=== PATIENT | female | born 1945 | race Caucasian/White ===

== ENCOUNTER 2018-08-03 10:01 | Emergency (ER) | payer OTHER, MEDICARE ==
--- NOTE | 2018-08-03 10:54 | RAD REPORT ---
EXAM DESCRIPTION: CT - Ct Stroke Brain Wo Cont - 08/03/2018 10:40 am CLINICAL HISTORY: Confusion COMPARISON: None. TECHNIQUE: Computed axial tomography of the head was obtained. IV contrast was not requested. All CT scans are performed using dose optimization technique as appropriate and may include automated exposure control or mA/KV adjustment according to patient size. FINDINGS: An intracranial bleed is not seen . The ventricles are normal in caliber. No extra-axial fluid collection is noted. Fluid within the sinuses/ mastoids is not seen. IMPRESSION: No acute intracranial abnormality is seen. If patient's symptoms persist MRI of the bra in would be recommended. Newton from the ER notified at 10:45 a.m. August 03, 2018
--- NOTE | 2018-08-03 11:00 | RAD REPORT ---
EXAM DESCRIPTION: Angelic Single View08/03/2018 10:50 am CLINICAL HISTORY: Hypertension COMPARISON: none FINDINGS: The lungs appear clear of acute infiltrate. The heart is normal size IMPRESSION: No acute abnormalities displayed
[2018-08-03 11:21] LABS: Absolute Lymphocytes (CBC) 2.6 K/uL (0.7-4.9); Absolute Monocytes 0.4 K/uL (0.1-1.3); Absolute Neutrophil 7.3 K/uL (1.8-8.0); Basophils % 0.7 % (0-1.3); Eosinophils % 3.6 % (0-4.4); Hematocrit 50.4 % (36.0-45.0); Lymphocytes % 24.3 % (15.3-44.8); MPV 8.7 fL (7.6-11.3); Monocytes % 4.1 % (3.3-12.3); RBC Red Blood Cell Count 5.63 M/uL (3.86-4.86)
[2018-08-03 11:24] LABS: BUN Blood Urea Nitrogen 16 mg/dL (7-18); Bicarbonate 29 mmol/L (21-32); Glucose Level 105 mg/dL (74-106); Magnesium 2.4 mg/dL (1.8-2.4); Potassium 3.8 mmol/L (3.5-5.1); Sodium Level 140 mmol/L (136-145); Troponin (Emerg Dept Use Only) < 0.02 ng/mL (0.0-0.045)
[2018-08-03 11:27] LABS: Protime INR 0.99
[2018-08-03 11:55] LABS: Platelet Estimate ADEQ
[2018-08-03 11:56] LABS: Blood Morphology Comment NOT SEEN (NOT SEEN)
[2018-08-03] MEDS ORDERED: NA CHLORIDE 0.9% 500 ML ONE (12:15)
--- NOTE | 2018-08-03 12:22 | EDPHYS ---
Physician Documentation [facility] Name: Dyan Bullock Age: 73 yrs Sex: Female : 1945 Arrival Date: 08/03/2018 Time: 10:03 Bed 8 Private MD: ED Physician Edouard Chakraborty HPI: 08/03 10:50 This 73 yrs old Female presents to ER via Ambulatory with complaints of rn Memory Loss, Altered Mental Status. 10:50 The patient's problem is reported as altered mental status. Onset: The symptoms/episode rn began/occurred at an unknown time. Duration:. The symptoms are alleviated by nothing. The symptoms are aggravated by nothing. Severity of symptoms: At their worst the symptoms were mild in the emergency department the symptoms are unchanged. The patient has not experienced similar symptoms in the past. Reports last known normal last night, woke up today, and first conversation with exhibited some memory deficiencies from day before, was not able to recall shopping day before, but no other focal neurological deficits. Family reports acting a bit agitated this morning when they offered to call ambulance. No period where someone noticed her to be of normal mindset this AM. . Historical: - Allergies: 10:05 No Known Allergies; aa5 - Home Meds: 10:17 metformin 1,000 mg Oral tab 1 tab 2 times per day [Active]; Amaryl 4 mg Oral tab pc1 [Active]; lisinopril 10 mg Oral tab 1 tab once daily [Active]; Synthroid 150 mcg Oral tab 1 tab once daily [Active]; Lipitor 20 mg Oral tab 1 tab once daily [Active]; aspirin 81 mg Oral TbEC 1 tab once daily [Active]; azithromycin 250 mg Oral tab 2 tabs once daily [Active]; benzonatate 200 mg oral cap 1 cap 3 times per day [Active]; - PMHx: 10:17 Diabetes - NIDDM; Hypertension; Hypothyroidism; pc1 - Immunization history:: Adult Immunizations unknown. - Ebola Screening: : No symptoms or risks identified at this time. - Social history:: Smoking status: Patient/guardian denies using tobacco, Patient/guardian denies using alcohol. - Family history:: not pertinent. - Hospitalizations: : No recent hospitalization is reported. ROS: 10:50 Constitutional: Negative for fever, chills, and weight loss, Eyes: Negative for injury, rn pain, redness, and discharge, Neck: Negative for injury, pain, and swelling, Cardiovascular: Negative for chest pain, palpitations, and edema, Respiratory: Negative for shortness of breath, cough, wheezing, and pleuritic chest pain, Abdomen/GI: Negative for abdominal pain, nausea, vomiting, diarrhea, and constipation, Back: Negative for injury and pain, MS/Extremity: Negative for injury and deformity, Skin: Negative for injury, rash, and discoloration, Neuro: Negative for headache, weakness, numbness, tingling, and seizure. Exam: 10:50 Radiologist reports: no acute findings rn 10:50 Constitutional: This is a well developed, well nourished patient who is awake, alert, and in no acute distress. Head/Face: Normocephalic, atraumatic. Eyes: Pupils equal round and reactive to light, extra-ocular motions intact. Lids and lashes normal. Conjunctiva and sclera are non-icteric and not injected. Cornea within normal limits. Periorbital areas with no swelling, redness, or edema. ENT: Oropharynx with no redness, swelling, or masses, exudates, or evidence of obstruction, uvula midline. Mucous membranes moist. Neck: Trachea midline, no thyromegaly or masses palpated, and no cervical lymphadenopathy. Supple, full range of motion without nuchal rigidity, or vertebral point tenderness. No Meningismus. Cardiovascular: Regular rate and rhythm. No pulse deficits. Respiratory: Lungs have equal breath sounds bilaterally, clear to auscultation. No increased work of breathing, no retractions or nasal flaring. Abdomen/GI: soft, non-tender MS/ Extremity: Pulses equal, no cyanosis. Neurovascular intact. Full, normal range of motion. Equal circumference. Neuro: Awake and alert, GCS 15, oriented to person, place,not time. Cranial nerves II-XII grossly intact. Motor strength 5/5 in all extremities. Sensory grossly intact. Cerebellar exam normal. Vital Signs: 10:10 BP 184 / 103; Pulse 100; Resp 18; Temp 97.7(O); Pulse Ox 99% on R/A; Weight 68.04 kg; hj Height 5 ft. 9 in. (175.26 cm); 10:53 BP 175 / 90; Pulse 87; Resp 18; Pulse Ox 99% on R/A; hj 12:14 BP 150 / 89; Pulse 96; Resp 20; Pulse Ox 96% on R/A; Pain 0/10; pc1 13:44 BP 156 / 84; Pulse 97; Resp 16; Pulse Ox 97% on R/A; hb 15:11 BP 158 / 82; Pulse 85; Resp 18; Pulse Ox 100% on R/A; hj 10:10 Body Mass Index 22.15 (68.04 kg, 175.26 cm) NIH Stroke Scale Scores: 10:54 NIHSS Score: 1 rn 12:53 NIHSS Score: 1 MDM: 10:06 Patient medically screened. rn 10:32 ED course: Last known normal last night, woke up and first conversation with rn showed signs of memory problems, not recalling events yesterday, outside of TPA window, no TPA indicated at this point. . 10:49 ED course: Ct head no acute findings. rn 11:17 ED course: NOrmal ambulation to bathroom without difficulty or assistance. Normal gait..rn 12:18 ED course: Negative w/u here, will transfer to [facility] for neuro w/u including MRI. rn 12:20 Differential diagnosis: CVA, TIA, Dementia, metabolic disorder. Data reviewed: vital rn signs, nurses notes, lab test result(s), EKG, radiologic studies, CT scan, plain films, and as a result, I will admit patient. Counseling: I had a detailed discussion with the patient and/or guardian regarding: the historical points, exam findings, and any diagnostic results supporting the discharge/admit diagnosis, lab results, radiology results, the need for further work-up and treatment in the hospital, the need to transfer to another facility, [facility] does not immediately have the required specialist. Response to treatment: There is no appreciated change of the patient's symptoms at this time. 12:23 ED course: Dr. Palumbo requests CTA head and neck prior to transfer.. rn 13:57 ED course: CT head and neck angio negative for acute abnormality. . rn 08/03 10:28 Order name: Magnesium; Complete Time: 11:45 rn 08/03 10:28 Order name: Troponin (emerg Dept Use Only); Complete Time: 11:45 rn 08/03 10:28 Order name: Basic Metabolic Panel; Complete Time: 11:45 rn 08/03 10:28 Order name: CBC with Diff; Complete Time: 13:30 rn 08/03 10:28 Order name: Protime (+inr); Complete Time: 11:45 rn 08/03 10:28 Order name: Ptt, Activated; Complete Time: 11:45 rn 08/03 10:28 Order name: CT Stroke Brain w/o Contrast; Complete Time: 11:05 rn 08/03 10:28 Order name: Stroke CXR 1 View; Complete Time: 11:05 rn 08/03 10:29 Order name: TSH; Complete Time: 11:45 rn 08/03 10:29 Order name: T4 Free; Complete Time: 11:45 rn 08/03 10:31 Order name: Urine Microscopic Only; Complete Time: 13:30 rn 08/03 10:56 Order name: Glucose, Ancillary Testing; Complete Time: 11:05 EDMS 08/03 11:23 Order name: Manual Differential; Complete Time: 13:30 EDMS 08/03 11:24 Order name: Urine Dipstick--Ancillary (enter results) eb 08/03 10:28 Order name: EKG; Complete Time: 10:30 rn 08/03 10:28 Order name: Accucheck; Complete Time: 10:37 rn 08/03 10:28 Order name: Cardiac monitoring; Complete Time: 10:30 rn 08/03 10:28 Order name: EKG - Nurse/Tech; Complete Time: 10:44 rn 08/03 10:28 Order name: IV Saline Lock; Complete Time: 10:37 rn 08/03 10:28 Order name: Labs collected and sent; Complete Time: 10:44 rn 08/03 10:28 Order name: NPO; Complete Time: 10: rn 08/03 10:28 Order name: O2 Per Protocol; Complete Time: 10:31 rn 08/03 10:28 Order name: O2 Sat Monitoring; Complete Time: 10: rn 08/03 10:28 Order name: Stroke Swallow Screen; Complete Time: 11: rn 08/03 10:31 Order name: Urine Dipstick-Ancillary (obtain specimen); Complete Time: 11:18 rn 08/03 12:27 Order name: Head angio; Complete Time: 13:55 EDMS 08/03 12:27 Order name: Neck Angio; Complete Time: 13:55 EDMS Administered Medications: 11:47 Drug: NS 0.9% 500 ml Route: IV; Rate: bolus; Site: right forearm; hj 12:49 Follow up: IV Status: Completed infusion; IV Intake: 500ml Point of Care Testing: Blood Glucose: 10:37 Blood Glucose: 106 mg/dL; pc1 Ranges: Critical Glucose Levels:Adult <50 mg/dl or >400 mg/dl <40 mg/dl or >180 mg/dl Disposition: 08/03/18 12:21 Transfer ordered to [facility]. Diagnosis is Altered mental status, unspecified. - Reason for transfer: Higher level of care. - Accepting physician is Dr. Palumbo. - Condition is Stable. - Problem is new. - Symptoms are unchanged. NIH Stroke Scale - NIH Stroke Score Date: 08/03/2018 Time: 10:54 Total Score = 1 1a. Level of Consciousness (LOC) - 0(Alert) 1b. Level of Consciousness (LOC) (Year \T\ Age) - 1(One) 1c. LOC Commands (Open \T\ Closes Eyes/Upholstery Covers Inspector) - 0(Both) 2. Best Gaze (Lateral Gaze Paresis) - 0(Normal) 3. Visual Field Loss - 0(No visual loss) 4. Facial Palsy - 0(Normal) 5a. Left Arm: Motor (10-second hold) - 0(No drift) 5b. Right Arm: Motor (10-second hold) - 0(No drift) 6a. Left Leg: Motor (5-second hold - always test supine) - 0(No drift) 6b. Right Leg: Motor (5-second hold - always test supine) - 0(No drift) 7. Limb Ataxia (finger/nose \T\ heel/sweeney - test with eyes open) - 0(Absent) 8. Sensory Loss (pinprick arms/legs/face) - 0(Normal) 9. Best Language: Aphasia (description/naming/reading) - 0(No aphasia) 10. Dysarthria (speech clarity - read or repeat words) - 0(Normal) 11. Extinction and Inattention (visual/tactile/auditory/spatial/personal) - 0(No abnormality) Initials: lisbet NIH Stroke Scale - NIH Stroke Score Date: 08/03/2018 Time: 12:53 Total Score = 1 1a. Level of Consciousness (LOC) - 1(Not Alert) 1b. Level of Consciousness (LOC) (Year \T\ Age) - 0(Both) 1c. LOC Commands (Open \T\ Closes Eyes/Upholstery Covers Inspector) - 0(Both) 2. Best Gaze (Lateral Gaze Paresis) - 0(Normal) 3. Visual Field Loss - 0(No visual loss) 4. Facial Palsy - 0(Normal) 5a. Left Arm: Motor (10-second hold) - 0(No drift) 5b. Right Arm: Motor (10-second hold) - 0(No drift) 6a. Left Leg: Motor (5-second hold - always test supine) - 0(No drift) 6b. Right Leg: Motor (5-second hold - always test supine) - 0(No drift) 7. Limb Ataxia (finger/nose \T\ heel/sweeney - test with eyes open) - 0(Absent) 8. Sensory Loss (pinprick arms/legs/face) - 0(Normal) 9. Best Language: Aphasia (description/naming/reading) - 0(No aphasia) 10. Dysarthria (speech clarity - read or repeat words) - 0(Normal) 11. Extinction and Inattention (visual/tactile/auditory/spatial/personal) - 0(No abnormality) Initials: hj Signatures: Dispatcher [employer] [facility] Edouard Chakraborty MD MD rn Calderon, Audri, RN RN aa5 Miguel Whittington, RN Cody Ulloa pc1 Corrections: (The following items were deleted from the chart) 10:32 10:31 UA MICROSCOPIC+U.LAB.BRZ ordered. [facility] EDSC 15:41 12:21 08/03/2018 12:21 Transfer ordered to [facility]. hj Diagnosis is Altered mental status, unspecified. Reason for transfer: Higher level of care. Accepting physician is Dr. Palumbo. Condition is Stable. Problem is new. Symptoms are unchanged. rn
--- NOTE | 2018-08-03 12:22 | ER ---
Nurse's Notes [facility] Name: Dyan Bullock Age: 73 yrs Sex: Female : 1945 Arrival Date: 08/03/2018 Time: 10:03 Bed 8 Private MD: Diagnosis: Altered mental status, unspecified Presentation: 08/03 10:05 Presenting complaint: Daughter states "she woke up confused today". Pt's states aa5 "we bought some plants yesterday and today she asked who's plants are those? and she couldn't recall that we went shopping for them yesterday". Pt is alert and oriented x person/place/time. Pt denies pain or any complaints. Reports she is taking amoxicillin for a cold. 10:05 Transition of care: patient was not received from another setting of care. Onset of aa5 symptoms was August 03, 2018. Risk Assessment: Do you want to hurt yourself or someone else? Patient reports no desire to harm self or others. Initial Sepsis Screen: Does the patient meet any 2 criteria? No. Patient's initial sepsis screen is negative. Does the patient have a suspected source of infection? No. Patient's initial sepsis screen is negative. Care prior to arrival: None. 10:05 Method Of Arrival: Ambulatory aa5 10:05 Acuity: CONRADO 2 aa5 Triage Assessment: 10:05 General: Appears in no apparent distress. uncomfortable, Behavior is calm, cooperative, hj appropriate for age. Pain: Denies pain. Historical: - Allergies: 10:05 No Known Allergies; aa5 - Home Meds: 10:17 metformin 1,000 mg Oral tab 1 tab 2 times per day [Active]; Amaryl 4 mg Oral tab pc1 [Active]; lisinopril 10 mg Oral tab 1 tab once daily [Active]; Synthroid 150 mcg Oral tab 1 tab once daily [Active]; Lipitor 20 mg Oral tab 1 tab once daily [Active]; aspirin 81 mg Oral TbEC 1 tab once daily [Active]; azithromycin 250 mg Oral tab 2 tabs once daily [Active]; benzonatate 200 mg oral cap 1 cap 3 times per day [Active]; - PMHx: 10:17 Diabetes - NIDDM; Hypertension; Hypothyroidism; pc1 - Immunization history:: Adult Immunizations unknown. - Ebola Screening: : No symptoms or risks identified at this time. - Social history:: Smoking status: Patient/guardian denies using tobacco, Patient/guardian denies using alcohol. - Family history:: not pertinent. - Hospitalizations: : No recent hospitalization is reported. Screenin:15 Patient has been NPO before screening. The patient is alert, able to follow commands. hj The patient does not exhibit slurred or garbled speech The patient is not exhibiting difficulty speaking. The patient does not exhibit difficulty understanding words. The patient is able to swallow own secretions with no drooling or need for suction. Patient tolerated one teaspoon of water. No drooling, immediate coughing, gurgling, or clearing of the throat was noted. The patient tolerated 90mL of water. No drooling, immediate coughing, gurgling, or clearing of the throat was noted. The patient passed the bedside swallow screening. Oral medications may be given as ordered. Contact Physician for further diet orders. Provider notified of bedside swallow screening results: Miguel Whittington RN. 10:19 Abuse screen: Denies threats or abuse. Denies injuries from another. Nutritional pc1 screening: No deficits noted. Tuberculosis screening: No symptoms or risk factors identified. Fall Risk None identified. Assessment: 10:05 General: Appears in no apparent distress. uncomfortable, Behavior is calm, cooperative, hj appropriate for age. Pain: Denies pain. Neuro: Level of Consciousness is awake, alert, obeys commands, Oriented to. Cardiovascular: Capillary refill < 3 seconds Patient's skin is warm and dry. Respiratory: Airway is patent Respiratory effort is even, unlabored, Respiratory pattern is regular, symmetrical. GI: No signs and/or symptoms were reported involving the gastrointestinal system. : No signs and/or symptoms were reported regarding the genitourinary system. EENT: No signs and/or symptoms were reported regarding the EENT system. Derm: No signs and/or symptoms reported regarding the dermatologic system. Musculoskeletal: No signs and/or symptoms reported regarding the musculoskeletal system. 10:20 Reassessment: Patient and/or family updated on plan of care and expected duration. Pain hj level reassessed. Patient is alert, oriented x 3, equal unlabored respirations, skin warm/dry/pink. wheeled to CT;. 10:38 Reassessment: last known normal per is 9:30 am last night. hj 11:30 Reassessment: Patient and/or family updated on plan of care and expected duration. Pain hj level reassessed. Patient is alert, oriented x 3, equal unlabored respirations, skin warm/dry/pink. awaiting results and POC;. 12:55 Reassessment: for transfer; awaiting approval;. hj 13:30 Reassessment: Patient and/or family updated on plan of care and expected duration. Pain hj level reassessed. Patient is alert, oriented x 3, equal unlabored respirations, skin warm/dry/pink. no other complaints. 14:44 Reassessment: Patient and/or family updated on plan of care and expected duration. Pain hj level reassessed. Patient is alert, oriented x 3, equal unlabored respirations, skin warm/dry/pink. awaiting paper works for transfer;. 15:02 Reassessment: Report called to Nurse Chayito Hawthorne. pc1 Vital Signs: 10:10 BP 184 / 103; Pulse 100; Resp 18; Temp 97.7(O); Pulse Ox 99% on R/A; Weight 68.04 kg; hj Height 5 ft. 9 in. (175.26 cm); 10:53 BP 175 / 90; Pulse 87; Resp 18; Pulse Ox 99% on R/A; hj 12:14 BP 150 / 89; Pulse 96; Resp 20; Pulse Ox 96% on R/A; Pain 0/10; pc1 13:44 BP 156 / 84; Pulse 97; Resp 16; Pulse Ox 97% on R/A; hb 15:11 BP 158 / 82; Pulse 85; Resp 18; Pulse Ox 100% on R/A; hj 10:10 Body Mass Index 22.15 (68.04 kg, 175.26 cm) hj NIH Stroke Scale Scores: 10:54 NIHSS Score: 1 rn 12:53 NIHSS Score: 1 ED Course: 10:03 Patient arrived in ED. as 10:03 Arm band placed on Patient placed in an exam room, on a stretcher. aa5 10:06 Edouard Chakraborty MD is Attending Physician. rn 10:09 Miguel Whittington, ASHLIE is Primary Nurse. hj 10:11 Triage completed. aa5 10:19 Patient has correct armband on for positive identification. Bed in low position. Call pc1 light in reach. Side rails up X2. 10:[address] via stretcher. pc1 10:36 Inserted saline lock: 20 gauge in right forearm, using aseptic technique. pc1 10:40 CT Stroke Brain w/o Contrast In Process Unspecified. EDMS 10:[address] back from [address]. pc1 10:49 Stroke CXR 1 View In Process Unspecified. EDMS 11:50 Urine collected: clean catch specimen, cloudy, edgar colored. jb1 12:19 initiated a transfer with Sandra at the [facility] transfer center. eb 12:[address] Palumbo the neurologist semiconductor wafers etcher stripper for [facility] with Dr. Chakraborty for eb patient transfer consultation. 13:20 Head angio In Process Unspecified. EDMS 13:20 Neck Angio In Process Unspecified. EDMS 14:[address] Carlos the hospitalist semiconductor wafers etcher stripper from [facility] with Dr. Chakraborty for eb patient transfer consultation. 14:23 administrative approval given by Sandra Tomlin at the [facility] transfer center/ patient going to bed 2214/ report to be called to [phone]/ Dr. Carlos has accepted the patient in transfer. 15:09 No provider procedures requiring assistance completed. hj 15:10 Patient transferred, IV remains in place. intact. Administered Medications: 11:47 Drug: NS 0.9% 500 ml Route: IV; Rate: bolus; Site: right forearm; hj 12:49 Follow up: IV Status: Completed infusion; IV Intake: 500ml Point of Care Testing: Blood Glucose: 10:37 Blood Glucose: 106 mg/dL; pc1 Ranges: Intake: 12:49 IV: 500ml; Total: 500ml. Outcome: 12:21 ER care complete, transfer ordered by . rn 15:10 Transferred by ground EMS to [facility], Transfer form completed. hj X-rays sent w/ patient. Note: report called to Chayito Hawthorne; 15:10 Condition: stable 15:10 Instructed on the need for transfer, Demonstrated understanding of instructions. 15:41 Patient left the ED. NIH Stroke Scale - NIH Stroke Score Date: 08/03/2018 Time: 10:54 Total Score = 1 1a. Level of Consciousness (LOC) - 0(Alert) 1b. Level of Consciousness (LOC) (Year \\T\\ Age) - 1(One) 1c. LOC Commands (Open \\T\\ Closes Eyes/Spring Repairer Helper Hand) - 0(Both) 2. Best Gaze (Lateral Gaze Paresis) - 0(Normal) 3. Visual Field Loss - 0(No visual loss) 4. Facial Palsy - 0(Normal) 5a. Left Arm: Motor (10-second hold) - 0(No drift) 5b. Right Arm: Motor (10-second hold) - 0(No drift) 6a. Left Leg: Motor (5-second hold - always test supine) - 0(No drift) 6b. Right Leg: Motor (5-second hold - always test supine) - 0(No drift) 7. Limb Ataxia (finger/nose \\T\\ heel/sweeney - test with eyes open) - 0(Absent) 8. Sensory Loss (pinprick arms/legs/face) - 0(Normal) 9. Best Language: Aphasia (description/naming/reading) - 0(No aphasia) 10. Dysarthria (speech clarity - read or repeat words) - 0(Normal) 11. Extinction and Inattention (visual/tactile/auditory/spatial/personal) - 0(No abnormality) Initials: ashlie NIH Stroke Scale - NIH Stroke Score Date: 08/03/2018 Time: 12:53 Total Score = 1 1a. Level of Consciousness (LOC) - 1(Not Alert) 1b. Level of Consciousness (LOC) (Year \\T\\ Age) - 0(Both) 1c. LOC Commands (Open \\T\\ Closes Eyes/Spring Repairer Helper Hand) - 0(Both) 2. Best Gaze (Lateral Gaze Paresis) - 0(Normal) 3. Visual Field Loss - 0(No visual loss) 4. Facial Palsy - 0(Normal) 5a. Left Arm: Motor (10-second hold) - 0(No drift) 5b. Right Arm: Motor (10-second hold) - 0(No drift) 6a. Left Leg: Motor (5-second hold - always test supine) - 0(No drift) 6b. Right Leg: Motor (5-second hold - always test supine) - 0(No drift) 7. Limb Ataxia (finger/nose \\T\\ heel/sweeney - test with eyes open) - 0(Absent) 8. Sensory Loss (pinprick arms/legs/face) - 0(Normal) 9. Best Language: Aphasia (description/naming/reading) - 0(No aphasia) 10. Dysarthria (speech clarity - read or repeat words) - 0(Normal) 11. Extinction and Inattention (visual/tactile/auditory/spatial/personal) - 0(No abnormality) Initials: Signatures: Dispatcher [employer] EDMS Demetri Guadalupe jb[address] Treviño Roman, MD MD rn Calderon, Audri, RN RN aa5 Miguel Whittington RN RN hj Baxter, Heather, RN RN hb Botello, Elizabeth eb Cantu, Patrick pc1 Corrections: (The following items were deleted from the chart) 10:46 10:10 BP 184 / 103; Pulse 100bpm; Resp 18bpm; Pulse Ox 99% RA; [facility] 10:51 10:10 BP 184 / 103; Pulse 100bpm; Resp 18bpm; Pulse Ox 99% RA; 68.04 kg; Height 5 ft. 9 in.; BMI: 22.1; 10:56 10:53 Pulse 87bpm; Resp 18bpm; Pulse Ox 99% RA; [facility] 12:54 10:15 NIHSS Score: 1 [facility] 12:54 10:15 Patient has been NPO before screening. The patient is alert, able to hj follow commands. The patient does not exhibit slurred or garbled speech The patient is not exhibiting difficulty speaking. The patient does not exhibit difficulty understanding words. The patient is able to swallow own secretions with no drooling or need for suction. Patient tolerated one teaspoon of water. No drooling, immediate coughing, gurgling, or clearing of the throat was noted. The patient tolerated 90mL of water. No drooling, immediate coughing, gurgling, or clearing of the throat was noted. The patient passed the bedside swallow screening. Oral medications may be given as ordered. Contact Physician for further diet orders. Provider notified of bedside swallow screening results: Miguel Whittington RN 15:10 15:09 Patient did not have IV access during this emergency room visit. kali bass
[2018-08-03 12:42] LABS: Urine Bacteria <20 /HPF (<20); Urine Culture Reflex Order NOT NEEDED; Urine Mucus SLIGHT /HPF (NONE SEEN); Urine RBC <5 /HPF (NONE SEEN)
--- NOTE | 2018-08-03 13:39 | RAD REPORT ---
EXAM DESCRIPTION: Ruby Angio08/03/2018 1:20 pm CLINICAL HISTORY: cva COMPARISON: None TECHNIQUE: 50 cc Isovue 370 was administered intravenously. 3D MIP reconstruction performed All CT scans are performed using dose optimization technique as appropriate and may include automated exposure control or mA/KV adjustment according to patient size. FINDINGS: The common carotid, internal carotid, external carotid arteries bilaterally do not demonst rate a significant stenosis. An aneurysm is not noted. Minimal calcified plaque is seen within the right brachiocephalic artery. The artery is tortuous The left vertebral artery is dominant. Vertebral arteries are unremarkable. IMPRESSION: Minimal calcified plaque within the right brachiocephalic artery. No significant abnorma lity displayed NASCET criteria used. Mild 0-49% stenosis Moderate 50-69% stenosis Severe 70-99% stenosis
--- NOTE | 2018-08-03 13:47 | RAD REPORT ---
EXAM DESCRIPTION: CTHead angio08/03/2018 1:20 pm CLINICAL HISTORY: cva COMPARISON: None TECHNIQUE: CT angiogram of the head was obtained. 3D MIPS reconstruction performed. All CT scans are performed using dose optimization technique as appropriate and may include automated exposure control or mA/KV adjustment according to patient size. FINDINGS: The basilar, internal carotid, anterior cerebral, middle cerebral and posterior cerebral a rteries are normal caliber. An aneurysm is not seen. A significant stenosis is not noted. origin right posterior cerebral artery IMPRESSION: Unremarkable CT angiogram head.
[2018-08-03 16:23] LABS: Urine Blood NEGATIVE (NEG); Urine Glucose NEGATIVE (NEG); Urine Protein 1+ (NEG)
--- NOTE | 2018-08-04 07:31 | EKG ---
Test Date: 2018-08-03 Test Time: 10:48:47 Laboratory Mechanical Technician: DOMINGA MEASUREMENT RESULTS: Intervals: Rate: 71 MD: 174 QRSD: 86 QT: 374 QTc: 406 Huntley: P: 57 MD: 174 QRS: -34 T: 46 INTERPRETIVE STATEMENTS: Sinus rhythm with marked sinus arrhythmia Left axis deviation Abnormal ECG No previous ECG available for comparison Electronically Signed On 08-04-18 07:30:15 CDT by Sumit Candelario
== END 2018-08-03 15:41 | disposition short-term general hospital (02) ==
LOC: ER 10:01
DX: R41.82 Altered mental status, unspecified (principal); I10 Essential (primary) hypertension; E11.9 Type 2 diabetes mellitus without complications; E03.9 Hypothyroidism, unspecified; Z79.82 Long term (current) use of aspirin
CPT/HCPCS: 93005; 85025; 80048; 36415; 83735; 85610; 82962; 85730; 84443; 84484; 84439; 70496; 70498; 70450; 71045; 96360; 99285; Q9967; 81003; 81015

== ENCOUNTER 2025-02-26 19:55 | Emergency (ER) | payer OTHER, MEDICARE ==
[2025-02-26] MEDS ORDERED: ONDANSETRON 4 MG/2 ML VIAL ONE (20:43)
[2025-02-26 20:46] LABS: Absolute Lymphocytes (CBC) 0.5 K/uL (0.7-4.9); Hematocrit 36.6 % (36.0-45.0); Hemoglobin 12.6 g/dL (12.0-15.0); MCH 30.6 pg (27.0-35.0); MCHC 34.3 g/dL (32.0-36.0); MCV 89.1 fL (80-100); MPV 7.5 fL (7.6-11.3); Nucleated RBC Absolute Count 0.0 (0-0); Nucleated Red Blood Cells % 0.2 % (0-0); RBC Red Blood Cell Count 4.11 M/uL (3.86-4.86); White Blood Count 11.50 thou/uL (4.3-10.9)
[2025-02-26 20:57] LABS: Anion Gap 10.9 mEq/L (5.0-15.0); BUN Blood Urea Nitrogen 23.0 mg/dL (7-18); Glucose Level 149.0 mg/dL (74-106); Magnesium 2.2 mg/dL (1.6-2.4); Potassium 3.9 mEq/L (3.5-5.1); Troponin High Sensitivity 6.7 pg/mL (<58.9)
--- NOTE | 2025-02-26 21:26 | RAD REPORT ---
EXAMINATION: ONE VIEW CHEST XR CLINICAL INDICATION: dizzy TECHNIQUE: Frontal chest projection is submitted. Examination is limited by patient positioning and t echnique. COMPARISON: 08/03/2018 FINDINGS: The lungs are well inflated and clear. The heart is normal in size. No displaced fractures identified . IMPRESSION: No acute intrathoracic abnormalities.
--- NOTE | 2025-02-26 21:27 | RAD REPORT ---
EXAMINATION: XR LEFT ANKLE CLINICAL INDICATION: Female, 79 years old. Pain;Swelling TECHNIQUE: 3 view radiograph of the left ankle were obtained. COMPARISON: No prior exam. FINDINGS: Small avulsion fracture suspected distal fibula. Moderate soft tissue swelling is seen abo ut the ankle. No additional fracture or dislocation seen.
[2025-02-26 21:30] LABS: Sqamous Epithelial <5 /HPF (None Seen); Urine Culture Reflex Order NOT NEEDED; Urine Microscopic Reflex YN ORDER UMIC
[2025-02-26 21:37] LABS: Differential Total Cells Count 100; Segmented Neutrophils 83 % (40-80)
[2025-02-26 21:38] LABS: Anisocytosis 1+; Polychromasia 1+
[2025-02-26 21:41] LABS: Blood Morphology Comment NOTED (NOT SEEN)
--- NOTE | 2025-02-26 21:52 | RAD REPORT ---
EXAMINATION: XR RIGHT KNEE CLINICAL INDICATION: Female, 79 years old. fall;Pain TECHNIQUE: Multiple views of the right knee were obtained. COMPARISON: No prior exam. FINDINGS: Mild diffuse osteopenia. Moderate medial compartment space narrowing. No acute fracture or dislocation. No aggressive bone lesion. Soft tissue swelling anterior knee. Small suprapatellar joint effusion.
--- NOTE | 2025-02-26 23:03 | ER ---
Nurse's Notes [facility] Name: Dyan Bullock Age: 79 yrs Sex: Female : 1945 Arrival Date: 02/26/2025 Time: 19:46 Bed 26 Private MD: Diagnosis: Avulsion Fracture of Ankle Left Lateral Malleolus ;Contusion of right knee, initial encounter;Fall on same level from slipping, tripping and stumbling with subsequent striking against object Presentation: 02/26 20:00 Chief complaint: EMS states: toned out for near fall. Patient twisted her left ankle me1 this morning and fell. This evening she stepped off a curb and her left knee gave out causing her to stumble and her grandsons caught her and helped her to sit down. While sitting outside waiting on EMS patient became a little dizzy, diaphoretic and had some nausea and vomited. 22g R wrist established. Coronavirus screen: At this time, the client does not indicate any symptoms associated with coronavirus-19. Ebola Screen: No symptoms or risks identified at this time. Initial Sepsis Screen: Does the patient meet any 2 criteria? No. Patient's initial sepsis screen is negative. Does the patient have a suspected source of infection? No. Patient's initial sepsis screen is negative. Risk Assessment: Do you want to hurt yourself or someone else? Patient reports no desire to harm self or others. Onset of symptoms was February 26, 2025. 20:00 Method Of Arrival: EMS: [facility] 20:00 Acuity: CONRADO 3 me1 Triage Assessment: 20:07 General: Appears in no apparent distress. well groomed, well developed, well nourished, me1 Behavior is calm, cooperative, appropriate for age, Reports c/o pain to left ankle and right knee. 08/27. Pain: Complains of pain in right knee and left medial ankle Pain does not radiate. Pain currently is 4 out of 10 on a pain scale. Quality of pain is described as aching, tender, Pain began suddenly, Is continuous. EENT: No signs and/or symptoms were reported regarding the EENT system. Neuro: Level of Consciousness is awake, alert, obeys commands, Oriented to person, place, time, situation, Appropriate for age. Cardiovascular: Patient's skin is warm and dry. Respiratory: Airway is patent Respiratory effort is even, unlabored, Respiratory pattern is regular, symmetrical. GI: Reports nausea, vomiting, x1 this evening. : No signs and/or symptoms were reported regarding the genitourinary system. Derm: Skin is intact, is healthy with good turgor, Skin is normal. Musculoskeletal: Reports pain in left ankle and right knee. Historical: - Allergies: 20:07 No Known Allergies; me1 - PMHx: 20:07 Diabetes - NIDDM; Hypertension; Hypothyroidism; uterine cancer (Unknown); me1 - PSHx: 20:07 Total abdominal hysterectomy; me1 - Immunization history:: Adult Immunizations up to date. - Infectious Disease History:: Denies. - Social history:: Smoking status: Patient denies any tobacco usage or history of. Screenin:07 [facility] ED Fall Risk Assessment (Adult) History of falling in the last 3 months, me1 including since admission Yes- single mechanical fall (1 pt) Confusion or Disorientation No (0 pts) Intoxicated or Sedated No (0 pts) Impaired Gait No (0 pts) Mobility Assist Device Used No (0 pt) Altered Elimination No (0 pt) Score/Fall Risk Level 0 - 2 = Low Risk Maintained a safe environment, Provided non-skid footwear, Hourly rounding (assess needs \T\ fall precautionary measures) done. Abuse screen: Denies threats or abuse. Nutritional screening: No deficits noted. Tuberculosis screening: No symptoms or risk factors identified. Assessment: 20:07 Reassessment: See triage assessment. me1 21:55 Reassessment: Patient appears in no apparent distress at this time. jb4 23:43 Reassessment: Patient appears in no apparent distress at this time. Patient and/or jb4 family updated on plan of care and expected duration. Pain level reassessed. Patient is alert, oriented x 3, equal unlabored respirations, skin warm/dry/pink. Vital Signs: 20:00 BP 155 / 81; Pulse 83; Resp 20; Temp 98.3; Pulse Ox 94% on R/A; Weight 65.77 kg; Height me1 5 ft. 9 in. ; Pain 4/10; 21:00 BP 115 / 79; Pulse 75; Resp 16; Pulse Ox 94% ; me1 21:55 BP 164 / 86; Pulse 86; Resp 16; Pulse Ox 92% on R/A; jb4 23:15 BP 153 / 78; Pulse 84; Resp 16; Pulse Ox 93% on R/A; jb4 20:00 Body Mass Index 21.41 (65.77 kg, 175.26 cm) me1 20:00 Pain Scale: Adult wv1 ED Course: 19:58 Patient arrived in ED. me1 20:02 Ben Plascencia DO is Attending Physician. ms3 20:05 Larry Broussard PA-C is PHCP. cp 20:07 Triage completed. me1 20:07 Arm band placed on Patient placed in an exam room. me1 20:07 Patient has correct armband on for positive identification. Bed in low position. Call wv1 light in reach. Side rails up X2. Provided Education on: POC. Verbalized understanding.. Client placed on continuous cardiac and pulse oximetry monitoring. NIBP monitoring applied. school bus monitor on. Pulse ox on. NIBP on. 20:07 No provider procedures requiring assistance completed. me1 20:14 Mildred Bull, ASHLIE is Primary Nurse. me1 20:32 Maintain EMS IV. Dressing intact. Good blood return noted. Site clean \T\ dry. Gauge \T\ me 1 site: 22g R wrist. Flushed with 10 mL NS. 20:32 Basic Metabolic Panel Sent. me1 20:32 CBC with Diff Sent. me1 20:32 Magnesium Sent. me1 20:32 Troponin HS Sent. me1 21:01 UA Rfx Srikanth Cult if indicated Sent. me1 21:01 Urine collected: clean catch specimen, clear. me1 21:12 XRAY Chest (1 view) In Process Unspecified. EDMS 21:12 XRAY Knee RIGHT 3 view In Process Unspecified. EDMS 21:12 XRAY Ankle LEFT 3 view In Process Unspecified. EDMS 23:00 Baljinder Almonte MD is Referral Physician. cp 23:15 IV discontinued, intact, bleeding controlled, No redness/swelling at site. Pressure jb4 dressing applied. Administered Medications: 21:01 Not Given (Patient Refused): ondansetron 4 mg IVP once; over 2 minutes me1 23:42 Drug: Acetaminophen PO 1000 mg PO once Route: PO; jb4 23:42 Follow up: Response: Medication administered at discharge. jb4 23:42 Drug: traMADol PO 50 mg PO once Route: PO; jb4 23:43 Follow up: Response: Medication administered at discharge. jb4 Medication: 20:07 VIS not applicable for this client. me1 Outcome: 23:02 Discharge ordered by . cp 23:44 Discharged to home via wheelchair, with family, jb4 23:44 Condition: stable 23:44 Discharge instructions given to patient, Instructed on discharge instructions, follow up and referral plans. no drinking with medication, no driving heavy equipment, medication usage, Demonstrated understanding of instructions, follow-up care, medications, Prescriptions given X 2, 23:44 Patient left the ED. jb4 Signatures: Dispatcher [employer] EDMS Larry Broussard PA-C PA-C cp Bryson, James, RN RN jb4 Ben Plascencia DO DO ms3 Mildred Bull RN RN me1 Corrections: (The following items were deleted from the chart) 21:03 20:00 Chief complaint: EMS states: toned out for near fall. Patient twisted her left me1 ankle this morning and fell. This evening she stepped off a curb and her left knee gave out causing her to stumble and her grandsons caught her and helped her to sit down. While sitting outside waiting on EMS patient became a little dizzy, diaphoretic and had some nausea and vomited. 22g R wrist established. me1
--- NOTE | 2025-02-26 23:03 | EDPHYS ---
Physician Documentation [facility] Name: Dyan Bullock Age: 79 yrs Sex: Female : 1945 Arrival Date: 02/26/2025 Time: 19:46 Bed 26 Private MD: ED Physician Ben Plascencia HPI: 02/26 20:15 This 79 yrs old Female presents to ER via EMS with complaints of Fall Injury, cp Nausea/Vomiting. 20:15 Details of fall: The patient fell from an upright position, while walking. cp 20:15 Patient presents to ED via EMS with c/o pain to left ankle and right knee. Injury to cp left ankle after misstep this morning and injury to right knee this evening after knee gave out while walking. Patient reports episode of vomiting, dizzy while waiting for EMS. Historical: - Allergies: 20:07 No Known Allergies; me1 - PMHx: 20:07 Diabetes - NIDDM; Hypertension; Hypothyroidism; uterine cancer (Unknown); me1 - PSHx: 20:07 Total abdominal hysterectomy; me1 - Immunization history:: Adult Immunizations up to date. - Infectious Disease History:: Denies. - Social history:: Smoking status: Patient denies any tobacco usage or history of. ROS: 20:20 Constitutional: Negative for body aches, chills, fever, poor PO intake, cp 20:20 Eyes: Negative for injury, pain, redness, and discharge, cp 20:20 Neck: Negative for pain with movement, pain at rest, stiffness, 20:20 Cardiovascular: Negative for chest pain, 20:20 Respiratory: Negative for cough, shortness of breath, wheezing, 20:20 MS/extremity: Positive for pain, swelling, tenderness, of the right knee and left ankle, Negative for decreased range of motion, deformity, paresthesias, 20:20 Neuro: Negative for altered mental status, syncope, near syncope, weakness, 20:20 All other systems are negative, Exam: 20:22 Constitutional: The patient appears in no acute distress, alert, awake, cp non-diaphoretic, non-toxic, well developed, well nourished, 20:22 Head/Face: Normocephalic, atraumatic. cp 20:22 Eyes: Periorbital structures: appear normal, Pupils: equal, round, and reactive to light and accomodation, Extraocular movements: intact throughout, Conjunctiva: normal, no exudate, no injection, Sclera: no appreciated abnormality, Lids and lashes: appear normal, bilaterally, 20:22 ENT: External ear(s): are unremarkable, Nose: is normal, Mouth: Lips: moist, Oral mucosa: moist, Posterior pharynx: Airway: no evidence of obstruction, patent, 20:22 Neck: ROM/movement: is normal, is supple, without pain, no range of motions limitations, 20:22 Chest/axilla: Inspection: normal, 20:22 Cardiovascular: Rate: normal, Edema: is not appreciated, JVD: is not appreciated, 20:22 Respiratory: the patient does not display signs of respiratory distress, Respirations: normal, no use of accessory muscles, no retractions, labored breathing, is not present, Breath sounds: are clear throughout, no decreased breath sounds, no stridor, no wheezing, 20:22 Abdomen/GI: Inspection: abdomen appears normal, Palpation: abdomen is soft and non-tender, in all quadrants, 20:22 Back: pain, is absent, ROM is normal, 20:22 Musculoskeletal/extremity: Extremities: noted in the right knee: small abrasion, mild swelling anterior right knee, tender to palpation, There is no evidence of decreased ROM, deformity, noted in the left ankle: tenderness, mild swelling lateral distal malleolus, no evidence of decreased ROM, deformity, ROM: limited passive range of motion due to pain, in the right knee and left ankle, 20:22 Neuro: Orientation: to person, place \T\ time. Mentation: is normal, Motor: moves all fours, strength is normal, Sensation: no obvious gross deficits, 20:52 ECG was reviewed by the Attending Physician. cp Vital Signs: 20:00 BP 155 / 81; Pulse 83; Resp 20; Temp 98.3; Pulse Ox 94% on R/A; Weight 65.77 kg; Height me1 5 ft. 9 in. ; Pain 4/10; 21:00 BP 115 / 79; Pulse 75; Resp 16; Pulse Ox 94% ; me1 21:55 BP 164 / 86; Pulse 86; Resp 16; Pulse Ox 92% on R/A; jb4 23:15 BP 153 / 78; Pulse 84; Resp 16; Pulse Ox 93% on R/A; jb4 20:00 Body Mass Index 21.41 (65.77 kg, 175.26 cm) me1 20:00 Pain Scale: Adult me1 MDM: 21:00 Differential diagnosis: contusion, fracture, multiple trauma, sprain, strain. cp 23:02 Medical Screening Exam initiated cp 23:02 Data reviewed: vital signs, nurses notes, lab test result(s), EKG, radiologic studies, cp plain films, and as a result, I will discharge patient. 02/26 20:06 Order name: Basic Metabolic Panel; Complete Time: 22:52 cp 02/26 22:52 Interpretation: Normal except: GLUC 149; BUN 23; CRE 1.05; GFR 55. cp 02/26 20:06 Order name: CBC with Diff; Complete Time: 22:52 cp 02/26 22:52 Interpretation: Normal except: WBC 11.50; RDW 20.5; MPV 7.5; DUY% 87.5; LYM% 4.3; BASO% cp 2.2; NEUT A 10.1; LYMA 0.5. 02/26 20:06 Order name: Magnesium; Complete Time: 22:52 cp 02/26 20:06 Order name: Troponin HS; Complete Time: 22:52 cp 02/26 20:06 Order name: UA Rfx Srikanth Cult if indicated; Complete Time: 22:52 cp 02/26 20:51 Order name: Manual Differential; Complete Time: 22:52 EDMS 02/26 20:06 Order name: XRAY Chest (1 view); Complete Time: 22:52 cp 02/26 20:06 Order name: XRAY Knee RIGHT 3 view; Complete Time: 22:52 cp 02/26 20:06 Order name: XRAY Ankle LEFT 3 view; Complete Time: 22:52 cp 02/26 20:06 Order name: Cardiac monitoring; Complete Time: 21:01 cp 02/26 20:06 Order name: EKG - Nurse/Tech; Complete Time: 21:01 cp 02/26 20:06 Order name: IV Saline Lock; Complete Time: 20:32 cp 02/26 20:06 Order name: Labs collected and sent; Complete Time: 20:32 cp 02/26 20:06 Order name: O2 Per Protocol; Complete Time: 20:32 cp 02/26 20:06 Order name: O2 Sat Monitoring; Complete Time: 20:32 cp 02/26 22:59 Order name: Walking boot; Complete Time: 23:42 cp EC:52 Rate is 89 beats/min. Rhythm is regular. NM interval is normal. QRS interval is normal. cp QT interval is normal. T waves are Inverted in lead aVR. Interpreted by me. Reviewed by me. Administered Medications: 21:01 Not Given (Patient Refused): ondansetron 4 mg IVP once; over 2 minutes me1 23:42 Drug: Acetaminophen PO 1000 mg PO once Route: PO; jb4 23:42 Follow up: Response: Medication administered at discharge. jb4 23:42 Drug: traMADol PO 50 mg PO once Route: PO; jb4 23:43 Follow up: Response: Medication administered at discharge. jb4 Disposition: 23:02 I was immediately available on-site in the Emergency Department for consultation in the ms3 care of the patient. Disposition Summary: 02/26/25 23:02 Discharge Ordered Notes: Location: Home cp Problem: new cp Symptoms: have improved cp Condition: Stable cp Diagnosis - Avulsion Fracture of Ankle Left Lateral Malleolus cp - Contusion of right knee, initial encounter cp - Fall on same level from slipping, tripping and stumbling with subsequent striking cp against object Followup: cp - With: Baljinder Almonte MD - When: 1 week - Reason: Recheck today's complaints Discharge Instructions: - Discharge Summary Sheet cp - Ankle Fracture cp - Contusion cp - Acute Knee Pain, Adult cp Forms: - Medication Reconciliation Form cp - Antibiotic Education cp - Prescription Opioid Use cp - Patient Portal Instructions cp - Leadership Thank You Letter cp Prescriptions: - Celebrex 100 mg Oral Capsule - take 1 capsule ORAL route every 12 hours As needed take with food; 40 capsule; cp Refills: 0, Product Selection Permitted - Tramadol 50 mg Oral Tablet - take 1 tablet ORAL route every 8 hours as needed; 12 tablet; Refills: 0, cp Product Selection Permitted Signatures: Dispatcher [employer] EDMS Larry Broussard PA-C PA-C cp Bryson, James, RN RN jb4 Ben Plascencia DO DO ms3 Mildred Bull RN RN me1 Corrections: (The following items were deleted from the chart) 20:07 20:07 BASIC METABOLIC PANEL+C.LAB.BRZ ordered. EDMS EDMS 20:07 20:07 CBC+H.LAB.BRZ ordered. EDMS EDMS : 20:07 MAGNESIUM+C.LAB.BRZ ordered. EDMS EDMS 20: 20:07 Troponin High Sensitivity+C.LAB.BRZ ordered. EDMS EDMS 20: 20:07 UA Rfx Srikanth Cult if indicated+U.LAB.BRZ ordered. EDMS EDMS 20: 20:07 Chest Single View+RAD.RAD.BRZ ordered. EDMS EDMS : 20:07 Knee Right 3 View+RAD.RAD.BRZ ordered. EDMS EDMS 20: 20:07 Ankle Left 3 View+RAD.RAD.BRZ ordered. EDMS EDMS 02/27 23:42 02/26 20:15 Patient presents to ED via EMS with c/o pain to left ankle and right knee. cp Injury to left ankle after misstep this morning and injury to right knee this evening after ankle gave out while walking. Patient reports episode of vomiting, dizzy while waiting for EMS. cp
[2025-02-26] MEDS ORDERED: TRAMADOL HCL 50 MG TAB ONE (23:17)
[2025-02-26] MEDS ORDERED: ACETAMINOPHEN 500 MG TAB ONE (23:17)
[2025-02-27 00:25] VITALS: TEMP 98.3
[2025-02-27 00:28] VITALS: BP 153/78; O2SAT 93
== END 2025-02-26 23:44 | disposition home or self-care (01) ==
LOC: ER 19:55
DX: S82.62XA Displaced fracture of lateral malleolus of left fibula, initial encounter for closed fracture (principal); S80.01XA Contusion of right knee, initial encounter; W01.198A Fall on same level from slipping, tripping and stumbling with subsequent striking against other object, initial encounter
CPT/HCPCS: 93005; 85025; 81001; 80048; 36415; 83735; 84484; 71045; 73562; 73610; 99284; J2405